=== PATIENT | female | born 1965 | race Caucasian/White ===

== ENCOUNTER 2017-12-14 21:20 | Observation (INO) | payer MEDICAID ==
[~2017-12-14] VITALS: Ht 154.9 cm; Wt 90.9 kg
[~2017-12-14 21:20] MED LIST: ASPIRIN325 MG PO; BAYER CHEWABLE81 MG PO; CRESTOR10 MG PO; GLUCOPHAGE1000 MG PO; NAPROSYN250 MG PO; TOPAMAX50 MG PO; XANAX0.25 MG; XANAX0.5 MG PO
[2017-12-14] MEDS ORDERED: ATIVAN0.5 MG PO (21:27)
[2017-12-14] MEDS ORDERED: LEXAPRO10 MG PO (21:28)
[2017-12-14] MEDS ORDERED: FARXIGA10 MG PO (21:28)
[2017-12-14] MEDS ORDERED: K-TAB10 MEQ PO (21:28)
[2017-12-14] MEDS ORDERED: LISINOPRIL10 MG PO (21:29)
[2017-12-14] MEDS ORDERED: GLIMEPIRIDE4 MG PO (21:29)
[2017-12-14] MEDS ORDERED: FUROSEMIDE20 MG PO (21:29)
[2017-12-14] MEDS ORDERED: PLAVIX75 MG PO (21:29)
[2017-12-14] MEDS ORDERED: COZAAR50 MG PO (21:29)
[2017-12-14 22:30] LABS: BASOPHILS 0.3 % (0-2); EOSINOPHILS 1.7 % (0-7); HEMATOCRIT 39.7 % (36.0-48.0); HEMOGLOBIN 13.3 g/dL (12-16); IMMATURE GRANULOCYTES 0.3 % (0-5); LYMPHOCYTES 27.2 % (15-50); MCH 29.6 pg (26.0-34.0); MCHC 33.5 g/dL (31.0-37.0); MCV 88.4 fL (80.0-100.0); MEAN PLATELET VOLUME 9.8 fL (7.4-10.4); MONOCYTES 9.4 % (2-11); NEUTROPHILS 61.1 % (40-80); PLATELET COUNT 309 10x3/uL (130-400); RBC 4.49 10x6/uL (4.00-5.40); RDW 13.2 % (11.5-14.5); WBC 11.9 10x3/uL (4.8-10.8)
[2017-12-14 22:36] LABS: CALC OSMOLALITY 280 mosm/kg (275-300); CALCIUM 9.8 mg/dL (8.5-10.1); CARBON DIOXIDE 26.9 mmol/L (21.0-32.0); CHLORIDE - SERUM 100 mmol/L (98-107); CREATININE - SERUM 0.7 mg/dL (0.6-1.3); GLUCOSE 150 mg/dL (74-106); POTASSIUM - SERUM 4.1 mmol/L (3.5-5.1); SODIUM 137 mmol/L (136-145); UREA NITROGEN 25 mg/dL (7-18); eGFR NON AFRICAN AMERICAN > 90 mL/min (90-120)
[2017-12-15] VITALS (8 sets, daily range): BP systolic 111–152; BP diastolic 67–84; Ht 154.9 cm; Wt 90.9 kg
[2017-12-15] MEDS ORDERED: PROTONIX40 MG PO (07:24)
== END 2017-12-15 14:18 | disposition home or self-care (01) ==
LOC: D.ER 21:20 → D.EDHOLD 23:42 → D.MS 23:42 → OBSVTIME 23:42 → D.EDHOLD 23:42 → D.MS 12-15 00:12
PROVIDERS: Emergency Medicine
DX: T18.128A Food in esophagus causing other injury, initial encounter (principal); Z79.84 Long term (current) use of oral hypoglycemic drugs; I10 Essential (primary) hypertension; K21.0 Gastro-esophageal reflux disease with esophagitis; E11.9 Type 2 diabetes mellitus without complications; K22.2 Esophageal obstruction; K29.70 Gastritis, unspecified, without bleeding

== ENCOUNTER → 2018-07-26 16:31 | Outpatient (CLI) | payer MEDICAID ==
[2017-12-15 02:59] VITALS: BMI 37.8
[~2018-07-26 16:31] MED LIST changes: +ATIVAN0.5 MG PO; +COZAAR50 MG PO; +FARXIGA10 MG PO; +FUROSEMIDE20 MG PO; +GLIMEPIRIDE4 MG PO; +K-TAB10 MEQ PO; +LEXAPRO10 MG PO; +LISINOPRIL10 MG PO; +PLAVIX75 MG PO; +PROTONIX40 MG PO
== END | disposition home or self-care (01) ==
LOC: D.MAMMO 10:30
DX: Z12.31 Encounter for screening mammogram for malignant neoplasm of breast (principal)

== ENCOUNTER 2019-04-03 18:45 | Observation (INO) | payer MEDICAID ==
[~2019-04-03] VITALS: Ht 154.9 cm; Wt 72.7 kg
[2019-04-03 19:28] LABS: BASOPHILS 0.3 % (0-2); EOSINOPHILS 1.5 % (0-7); HEMATOCRIT 41.5 % (36.0-48.0); HEMOGLOBIN 13.8 g/dL (12-16); IMMATURE GRANULOCYTES 0.3 % (0-5); LYMPHOCYTES 37.8 % (15-50); MCH 29.4 pg (26.0-34.0); MCHC 33.3 g/dL (31.0-37.0); MCV 88.3 fL (80.0-100.0); MEAN PLATELET VOLUME 10.1 fL (7.4-10.4); MONOCYTES 9.7 % (2-11); NEUTROPHILS 50.4 % (40-80); PLATELET COUNT 291 10x3/uL (130-400); RDW 13.3 % (11.5-14.5); WBC 10.2 10x3/uL (4.8-10.8)
[2019-04-03 19:35] LABS: INR 0.97 (0.85-1.17); PROTIME 12.4 SECONDS (11.6-15.0)
[2019-04-03 19:36] LABS: APTT 27.3 SECONDS (22.8-39.4)
[2019-04-03 19:43] LABS: ALBUMIN 3.9 g/dL (3.4-5.0); ALKALINE PHOSPHATASE 109 U/L (46-116); ALT (SGPT) 36 U/L (10-68); BILIRUBIN - TOTAL 0.26 mg/dL (0.2-1.3); CALC OSMOLALITY 283 mosm/kg (275-300); CALCIUM 9.2 mg/dL (8.5-10.1); CARBON DIOXIDE 32.1 mmol/L (21.0-32.0); CHLORIDE - SERUM 102 mmol/L (98-107); CREATININE - SERUM 0.8 mg/dL (0.6-1.3); GLUCOSE 137 mg/dL (74-106); POTASSIUM - SERUM 3.9 mmol/L (3.5-5.1); PROTEIN - SERUM 8.1 g/dL (6.4-8.2); SODIUM 141 mmol/L (136-145); UREA NITROGEN 15 mg/dL (7-18); eGFR NON AFRICAN AMERICAN 79 mL/min (90-120)
[2019-04-03 20:11] LABS: CKMB 1.5 U/L (0.0-3.6); CREATINE KINASE 86 UL (21-215); MAGNESIUM - SERUM 1.9 mg/dL (1.8-2.4)
[2019-04-03 20:12] LABS: TROPONIN-I < 0.017 ng/mL (0.000-0.060)
[2019-04-03 20:40] LABS: CKMB 1.5 U/L (0.0-3.6); CREATINE KINASE 86 UL (21-215)
[2019-04-03 23:04] VITALS: BP 133/77; Ht 154.9 cm; Wt 72.7 kg
[2019-04-04] VITALS: BP 128/56
[2019-04-04 04:01] LABS: BASOPHILS 0.4 % (0-2); EOSINOPHILS 1.4 % (0-7); HEMATOCRIT 41.3 % (36.0-48.0); HEMOGLOBIN 13.3 g/dL (12-16); IMMATURE GRANULOCYTES 0.2 % (0-5); LYMPHOCYTES 33.4 % (15-50); MCH 28.9 pg (26.0-34.0); MCHC 32.2 g/dL (31.0-37.0); MCV 89.6 fL (80.0-100.0); MEAN PLATELET VOLUME 10.1 fL (7.4-10.4); MONOCYTES 11.6 % (2-11); PLATELET COUNT 275 10x3/uL (130-400); RBC 4.61 10x6/uL (4.00-5.40); RDW 13.3 % (11.5-14.5); WBC 8.4 10x3/uL (4.8-10.8)
--- NOTE | 2019-04-04 04:15 | NUR ---
PATIENT REQUESTING AN ASPIRIN. ANGIE LOOKING A EMAR NOTICED THAT THE WAS AN ORDER FOR A ONE TIME DOSE OF ASPIRIN THAT WAS NOT GIVEN IN ER. CALLED VERONICA CARNEY ORDERS GIVEN TO GIVEN PATIENT 0900 DOSE NOW AND D/C ONE TIME DOSE OF ASPIRIN.
[2019-04-04 04:24] LABS: ALBUMIN 3.4 g/dL (3.4-5.0); ALKALINE PHOSPHATASE 93 U/L (46-116); ALT (SGPT) 34 U/L (10-68); BILIRUBIN - TOTAL 0.34 mg/dL (0.2-1.3); CALCIUM 8.7 mg/dL (8.5-10.1); CARBON DIOXIDE 32.2 mmol/L (21.0-32.0); CHLORIDE - SERUM 103 mmol/L (98-107); CKMB 1.4 U/L (0.0-3.6); CREATINE KINASE 69 UL (21-215); CREATININE - SERUM 0.9 mg/dL (0.6-1.3); MAGNESIUM - SERUM 1.8 mg/dL (1.8-2.4); PHOSPHOROUS 4.4 mg/dL (2.5-4.9); POTASSIUM - SERUM 4.2 mmol/L (3.5-5.1); PROTEIN - SERUM 7.4 g/dL (6.4-8.2); SODIUM 140 mmol/L (136-145); UREA NITROGEN 18 mg/dL (7-18); eGFR NON AFRICAN AMERICAN 69 mL/min (90-120)
[2019-04-04 04:34] VITALS: BP 122/66
[2019-04-04 04:34] LABS: CALC OSMOLALITY 286 mosm/kg (275-300); GLUCOSE 203 mg/dL (74-106); TROPONIN-I < 0.017 ng/mL (0.000-0.060)
[2019-04-04 08:00] VITALS: BP 127/81; BP 177/102
[2019-04-04 08:59] LABS: CKMB 1.1 U/L (0.0-3.6); CREATINE KINASE 70 UL (21-215); TROPONIN-I < 0.017 ng/mL (0.000-0.060)
[2019-04-04 12:00] VITALS: BP 116/79
--- NOTE | 2019-04-04 12:56 | NUR ---
LEAVING FOR STRESS TEST BY W/C. WILL CONT. PLAN OF CARE.
--- NOTE | 2019-04-04 15:50 | NUR ---
LEAVING FOR 2ND HALF STRESS TEST. WILL CONT. PLAN OF CARE.
[2019-04-04 16:07] VITALS: BP 132/84
--- NOTE | 2019-04-04 18:13 | MORECARE ---
CASE MANAGEMENT DISCHARGE SUMMARY PATIENT: TRAVIS VELÁSQUEZ UNIT: [id number] ADM DATE: 04/03/19 AGE: 54 : 67 SEX: F ROOM/BED: D[facility] AUTHOR: OTIS VILLEDA PHYSICIAN: REFERRING PHYSICIAN: PARAS GRAJEDA MD DATE OF SERVICE: 04/04/19 Discharge Plan Patient Name: TRAVIS VELÁSQUEZ Facility: [facility]:[place] : 1965 Planned Disposition: Anticipated Discharge Date: Discharge Date: Expected LOS: Initial Reviewer: [email or web address] Initial Review Date: 04/03/2019 Generated: 04/04/19 7:12 pm Patient Name: TRAVIS VELÁSQUEZ Page [id number] at 1813 All edits/amendments must be made on the electronic document DICTATION DATE: 04/04/191811 MID LEVEL PRACTITIONER: CR 04/04/191811 RPT#: [id number] DC DATE: STATUS: ADM IN [facility] [address] [place] [address] END OF REPORT
--- NOTE | 2019-04-04 19:52 | NUR ---
RECIEVED REPORT FROM PRITI RODRIGUEZ AT BEDSIDE. PT IS RESTING IN BED ALERT AND ORIENTED AT THIS TIME. VITALS STABLE. PT DENIES ANY PAIN OR FURTHER NEEDS AT THIS TIME. AT BEDSIDE. BED LOW CALL LIGHT WITHIN REACH. WILL CONTINUE TO MONITOR.
[2019-04-04 20:22] VITALS: BP 117/78
[2019-04-05] VITALS: BP 104/73
--- NOTE | 2019-04-05 02:55 | NUR ---
PT RESTING IN BED WITH EYES CLOSED RR EVEN AND UNLABORED. NO S/S OF DISTRESS AT THIS TIME. BED LOW CALL LIGHT WITHIN REACH. WILL CONTINUE TO MONITOR.
[2019-04-05 05:24] VITALS: BP 106/63
[2019-04-05 06:21] LABS: BASOPHILS 0.2 % (0-2); EOSINOPHILS 2.3 % (0-7); HEMATOCRIT 42.7 % (36.0-48.0); HEMOGLOBIN 14.1 g/dL (12-16); IMMATURE GRANULOCYTES 0.1 % (0-5); LYMPHOCYTES 33.4 % (15-50); MCH 29.6 pg (26.0-34.0); MCV 89.7 fL (80.0-100.0); MEAN PLATELET VOLUME 10.3 fL (7.4-10.4); MONOCYTES 10.7 % (2-11); NEUTROPHILS 53.3 % (40-80); PLATELET COUNT 295 10x3/uL (130-400); RBC 4.76 10x6/uL (4.00-5.40); RDW 13.4 % (11.5-14.5); WBC 8.7 10x3/uL (4.8-10.8)
[2019-04-05 06:37] LABS: CALC OSMOLALITY 285 mosm/kg (275-300); CALCIUM 9.2 mg/dL (8.5-10.1); CARBON DIOXIDE 32.3 mmol/L (21.0-32.0); CHLORIDE - SERUM 99 mmol/L (98-107); CREATININE - SERUM 0.7 mg/dL (0.6-1.3); GLUCOSE 194 mg/dL (74-106); MAGNESIUM - SERUM 1.8 mg/dL (1.8-2.4); PHOSPHOROUS 3.7 mg/dL (2.5-4.9); POTASSIUM - SERUM 4.2 mmol/L (3.5-5.1); SODIUM 139 mmol/L (136-145); UREA NITROGEN 20 mg/dL (7-18); eGFR NON AFRICAN AMERICAN > 90 mL/min (90-120)
--- NOTE | 2019-04-05 07:30 | NUR ---
PT RESTING IN BED, SHIFT ASSESSMENT PERFORMED. DENIES ANY NEEDS AT THIS TIME. WILL CONT TO FOLLOW POC
[2019-04-05 08:20] VITALS: BP 103/54
[2019-04-05 12:12] VITALS: BP 124/67
--- NOTE | 2019-04-05 12:15 | NUR ---
PT RESTING IM BED EATING LUNCH, FAMILY AT BEDSIDE. DENIES ANY NEEDS AT THIS TIME. WILL CONT TO FOLLOW POC
--- NOTE | 2019-04-05 12:23 | NUR ---
IN ADMISSION HX PATIENT STATES TO HAVING A FLU SHOT SINCE JANUARY 2019.
--- NOTE | 2019-04-05 12:32 | NUR ---
WHEN QUESTIONING PATIENT ABOUT FLU SHOT THAT WAS ON ADMIT, PATIENT STATES THAT SHE DOES NOT TAKE THEM AT ALL.
--- NOTE | 2019-04-05 13:03 | NUR ---
Nutrition Consult: Received consult for diabetic education. Family at bedside. Mother seemed very interested in information; she is also diabetic. Pt appeared hesitant to make dietary changes. Reports drinking at least 1 Coke daily and [place] food almost daily consisting of 3 tacos, rice, beans, chips & salsa, and 1-2 glasses sweet tea. Discussed carb servings and recommended amts at each meal. States she does not like diet drinks or artificial sweetners. Reports she previously attended a diabetic class but did not find it helpful. Discussed possibility of 1-on-1 OP DM education. Left multiple pieces of education on diabetic diet. Family thanked this RD for coming speak with them and the information provided.
[2019-04-05 13:39] LABS: ERYTHROCYTE SEDIMENTATION RATE 17 mm/hr (0-30)
--- NOTE | 2019-04-05 14:00 | NUR ---
DISCHARGE INSTRUCTIONS REVIEWED WITH PT AND ALL QUESTIONS ANSWERED. PIV REMOVED WITH CATHETER TIP INTACT. PT TAKEN TO FRONT OF HOSPITAL VIA WHEELCHAIR.
--- NOTE | 2019-04-05 14:52 | MORECARE ---
CASE MANAGEMENT DISCHARGE SUMMARY PATIENT: TRAVIS VELÁSQUEZ UNIT: [id number] ADM DATE: 04/03/19 AGE: 54 : 67 SEX: F [facility] AUTHOR: OTIS VILLEDA PHYSICIAN: REFERRING PHYSICIAN: PARAS GRAJEDA MD DATE OF SERVICE: 04/05/19 Discharge Plan Patient Name: TRAVIS VELÁSQUEZ Facility: [facility]:[place] : 1965 Planned Disposition: Anticipated Discharge Date: Discharge Date: Expected LOS: Initial Reviewer: [email or web address] Initial Review Date: 04/03/2019 Generated: 04/05/19 3:52 pm Last DP export: 04/04/19 5:13 p Patient Name: TRAVIS VELÁSQUEZ Page [id number] at 1452 All edits/amendments must be made on the electronic document DICTATION DATE: 04/05/191451 OXYGEN PLANT OPERATOR: CR 04/05/191451 RPT#: [id number] DC DATE: STATUS: ADM IN [facility] [address] [place] [address] END OF REPORT
== END 2019-04-05 15:18 | disposition home or self-care (01) ==
LOC: D.ER 18:45 → D.M2 19:41 → OBSVTIME 19:52 → D.M2 04-05 15:18
PROVIDERS: Family Medicine; ADMIT Family Medicine; ATTEND Family Medicine
DX: R07.89 Other chest pain (principal); Z86.73 Personal history of transient ischemic attack (TIA), and cerebral infarction without residual deficits; I10 Essential (primary) hypertension; E11.9 Type 2 diabetes mellitus without complications; F41.8 Other specified anxiety disorders